=== PATIENT | male | born 1965 | race Caucasian/White ===

== ENCOUNTER 2020-06-24 07:57 | Inpatient (IN) | payer OTHER ==
[~2020-06-24] VITALS: Ht 175.3 cm; Wt 107.1 kg
[~2020-06-24 07:57] MED LIST: AMBIEN 5 MG TABL5 M1 PO; ASPIRIN325 PO; CARDIZEM CD240 MG PO
[2020-06-24 08:02] VITALS: BP 134/84
[2020-06-24] MEDS ORDERED: CARDIZEM CD120 MG PO (08:06)
[2020-06-24 08:30] LABS: ABSOLUTE BASOPHILS 0.1 thou/uL (0.0-0.2); ABSOLUTE EOSINOPHILS 0.1 thou/uL (0.0-0.7); ABSOLUTE LYMPHOCYTES 1.9 thou/uL (0.8-5.3); ABSOLUTE MONOCYTES 0.6 thou/uL (0.0-1.2); ABSOLUTE NEUTROPHILS 3.8 thou/uL (1.6-8.1); BASOPHILS 0.9 %; EOSINOPHILS 1.5 %; HEMOGLOBIN 17.6 gm/dL (14.0-18.0); LYMPHOCYTES 29.8 %; MCH 31.5 pg (26.0-34.0); MCHC 33.3 g/dL (28.0-37.0); MCV 94.7 fL (80.0-100.0); MPV 8.7 fl. (7.2-11.1); NUCLEATED RBCS 0 /100WBC; PLATELET COUNT* 260 thou/uL (150-400); POLYS 58.8 %; WBC 6.5 thou/uL (4.0-11.0)
[2020-06-24 08:37] LABS: CALCIUM 8.5 mg/dL (8.5-10.1)
[2020-06-24 08:48] LABS: ALBUMIN 3.8 g/dL (3.4-5.0); TOTAL BILIRUBIN 0.8 mg/dL (<0.1-1.0); TOTAL PROTEIN 7.7 g/dL (6.4-8.2)
[2020-06-24 09:08] LABS: APTT 26.6 Seconds (25.0-31.3); INR 1.1; PROTIME 11.2 Seconds (9.20-11.50)
[2020-06-24 10:31] VITALS: BP 114/79
[2020-06-24 10:40] VITALS: BP 141/95
--- NOTE | 2020-06-24 11:24 | EKG ---
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1965 Requested By: Tyler Gerardo Order Number: [id number] MD: Quentin Cummings Measurements Intervals [place] Rate: 88 P: RI: QRS: 15 QRSD: 142 T: 1 QT: 378 QTc: 458 Interpretive Statements Atrial fibrillation Right bundle branch block Baseline wander in lead(s) V2,V3,V4 Compared to ECG 03/02/2016 18:19:39 No significant changes Electronically Signed On 06-24-2020 11:24:27 CDT by Quentin Cummings [email or web address] <ELECTRONICALLY SIGNED> By: Quentin Cummings MD, [facility] 06/24/20 1124 5 5 Quentin Cummings MD, [facility] /EPI
[2020-06-24 16:05] VITALS: BP 142/82
[2020-06-24 20:00] VITALS: BP 116/74
[2020-06-25 00:43] VITALS: BP 108/54
[2020-06-25 04:36] VITALS: BP 109/67
[2020-06-25 07:51] VITALS: BP 125/70
[2020-06-25 12:00] VITALS: BP 111/64
--- NOTE | 2020-06-25 13:38 | CON ---
[address] [address] CONSULTATION Name: THERESA ALBERTO Room: [place] [address] ADM Radha Carey#: [id number] Admission: 06/24/20 Attend Phys: Quentin Cummings MD, F Discharge: Date of : 65 Report #: [id number] THIS REPORT FOR: cc: Jose F Turner MD, Matthew W. MD Blick, David R. MD [facility] ~ DATE OF SERVICE: 06/24/2020 CARDIOLOGY CONSULTATION HISTORY OF PRESENT ILLNESS: The patient is a 55-year-old white male who I was asked to see in the hospital today after he had atrial fibrillation. The patient has an extensive and complicated past medical history. He has a history of morbid obesity, previously weighed over 400 pounds, but had gastric sleeve surgery done in the past. He is not very active at this time. He has a long history of paroxysmal atrial fibrillation. He notes he is positive, then cardioverted at least 12 times, initially in 1984 at [facility]. His last cardioversion was here at [facility] in 02/[address] Hodgson. He actually underwent radiofrequency ablation by Dr. Ornelas at [facility] in 2007. He was doing well until about 3 days ago, he noticed an irregular heartbeat, felt somewhat lightheaded. He said he is back in atrial fibrillation. He came to the Emergency Room today and was admitted for further evaluation and treatment. He does have occasional lightheadedness and fatigue. He has some shortness of breath, but denies any chest pain, fever or cough. He has no history of bleeding. PAST MEDICAL HISTORY: He has had previous gastric sleeve surgery, cholecystectomy, foot surgery. No history of hypertension, diabetes, hyperlipidemia. MEDICATIONS: Include diltiazem CD 120 mg a day. He takes Ambien for sleep. ALLERGIES: He has no known drug allergies. FAMILY HISTORY: His father and mother had atrial fibrillation. SOCIAL HISTORY: He is . He and his live in [place]. Quit smoking years ago. No alcohol abuse. Rarely drinks caffeine. No illicit drug use. REVIEW OF SYSTEMS: He has had no history of stroke. He has allergies. No history of asthma, liver disease, kidney disease, cancer, psychiatric illness, [place] [address] CONSULTATION Name: THERESA ALBERTO Room: [address] Radha Carey#: [id number] Admission: 06/24/20 Attend Phys: Quentin Cummings MD, F Discharge: Date of : 65 Report #: [id number] PHYSICAL EXAMINATION: GENERAL: Revealed a large middle-aged male, appeared in no distress. VITAL SIGNS: He had a blood pressure of 120/80, pulse is 80. He was afebrile. HEENT: He was anicteric. Conjunctivae pink. Mucous membranes moist. NECK: Veins nondistended. No carotid bruits. Neck supple. CHEST: Clear to auscultation. CARDIOVASCULAR: Irregular rhythm. No significant murmur. ABDOMEN: Soft, nontender. EXTREMITIES: Had no edema. Dorsalis pedis pulses 1+ bilaterally. SKIN: Cool and dry. RADIOLOGICAL DATA: ECG shows atrial fibrillation, controlled ventricular response rate with a right bundle-branch block. His workup; the patient actually had an echocardiogram back in 2016 here at [facility] that showed ejection fraction of 55%, no significant valvular abnormalities. The patient had a portable chest x-ray this morning in the Emergency Room that showed normal heart size, clear lung hagen. LABORATORY WORK: Sodium 145, creatinine 1.0, glucose 90. Liver function studies were normal. Troponin 0.06. Previous cholesterol in 2016 was 220, triglyceride 132, HDL 55, LDL of 139. His white blood cell count is 6.5, hemoglobin 17.6. IMPRESSION AND RECOMMENDATIONS: 1. Atrial fibrillation. Occurred 3 days ago. The patient has a SUZANNE score of 0. Therefore, I would not recommend anticoagulation. The patient has been cardioverted 12 times in the past including radiofrequency ablation. At this time, I would aim for rate control with diltiazem. I would consider an aspirin a day. 2. History of morbid obesity. 3. Allergies. 4. Hyperlipidemia. If LDL remains greater than 130, I would consider a statin drug. <ELECTRONICALLY SIGNED> By: Quentin Cummings MD, [facility] 06/25/20 1338 1315 [id number] Cummings MD, FACC /nt
[2020-06-25 16:00] VITALS: BP 116/69
[2020-06-26] VITALS (20 sets, daily range): BP systolic 88–113; BP diastolic 57–89
--- NOTE | 2020-06-26 11:16 | EKG ---
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
--- NOTE | 2020-06-26 11:23 | TEE ---
[place] [address] TRANSESOPHAGEAL ECHOCARDIOGRAM Name: THERESA ALBERTO Room: [address] IN Aung#: [id number] Admission: 06/25/20 Attend Phys: Quentin Cummings MD Discharge: Date of : 65 Date of Service: 06/26/20 1123 Report #: [id number] THIS REPORT FOR: cc: Jose F Turner MD, Matthew W. MD Blick, David R. MD [facility] ~ APPROVED REPORT Study performed: 06/26/2020 09:31:35 EXAM: Transesophageal Echocardiogram Patient Location: In-Patient Room #: 227 Status: routine BSA: 2.31 HR: 78 bpm BP: 109/81 mmHg Rhythm: Atrial Fibrillation Indications Atrial Fibrillation Echo Enhancing Agent Indication: Rule out Shunt Agent(s) / Amount(s) Used: Agitated Saline 20 cc Comments: 2 bubble studies Procedure After obtaining informed consent, patient underwent transesophageal echo in the [employer]. Type of Sedation : Conscious Sedation Sedation was administered by Kayleen Lopez RN. Sedation start time: 1027 Case end Time: 1048 Sedation was achieved intravenously with: Versed (4) Fentanyl (75) Transesophageal probe was inserted and advanced into esophagus without difficulty by Quentin Cummings MD, [facility]. Echo enhancement indication: R/O Septal defect. Echo enhancement agent administered: Agitated Saline The MYRON was performed without complications. Synchronized Cardioversion acheived with 300 Joules after 1 attempt(s). Rhythm following Synchronized Cardioversion: Normal Sinus Rhythm Throughout the procedure, the blood pressure, pulse oximetry, cardiac [address] [address] TRANSESOPHAGEAL ECHOCARDIOGRAM Name: THERESA ALBERTO Room: [address] IN [facility]#: [id number] Admission: 06/25/20 Attend Phys: Quentin Cummings MD Discharge: Date of : 65 Date of Service: 06/26/20 1123 Report #: [id number] rhythm, and rate were monitored. The patient tolerated the procedure without adverse effects. Recovery from conscious sedation was uneventful and vital signs were stable. Left Ventricle The left ventricle is normal size. There is normal LV segmental wall motion. Mild concentric left ventricular hypertrophy. The left ventricular systolic function is normal. The left ventricular ejection fraction is within the normal range. LVEF is 60-65%. Right Ventricle The right ventricle is normal size. The right ventricular systolic function is normal. Atria Left atrium is mildly dilated. No thrombus is visualized in the left atrium or appendage. The interatrial septum is intact with no evidence for an atrial septal defect. The right atrium size is normal. Aortic Valve The aortic valve is normal in structure. Trace aortic regurgitation. There is no aortic valvular stenosis. Mitral Valve The mitral valve is normal in structure. Trace mitral regurgitation. No evidence of mitral valve stenosis. Tricuspid Valve The tricuspid valve is normal in structure. Mild tricuspid regurgitation. Pulmonic Valve The pulmonary valve is normal in structure. There is no pulmonic valvular regurgitation. Great Vessels The aortic root is normal in size. Pericardium There is no pericardial effusion. <Conclusion> Mild concentric left ventricular hypertrophy. LVEF is 60-65%. [place] [address] TRANSESOPHAGEAL ECHOCARDIOGRAM Name: REMYTHERESA L Room: [address] IN ..#: [id number] Admission: 06/25/20 Attend Phys: Quentin Cummings MD Discharge: Date of : 65 Date of Service: 06/26/20 112 Report #: [id number] Left atrium is mildly dilated. No thrombus is visualized in the left atrium or appendage. The interatrial septum is intact with no evidence for an atrial septal defect. successful cardioversion of atrial fibrillation to normal sinus rhythm <ELECTRONICALLY SIGNED> By: Quentin Cummings MD, [facility] 06/26/20 1123 22 22 Quentin Cummings MD, FACC /INF
[2020-06-27] VITALS: BP 100/59
[2020-06-27 04:00] VITALS: BP 109/67
[2020-06-27 07:40] VITALS: BP 111/74
[2020-06-27] MEDS ORDERED: ELIQUIS5 MG PO (08:40)
[2020-06-27] MEDS ORDERED: SORINE 80 MG TA80 M1 PO (08:41)
[2020-06-27 09:29] VITALS: BP 111/74
[2020-06-27 09:49] VITALS: BP 111/74
--- NOTE | 2020-06-27 10:30 | EKG ---
[place] [address] ELECTROCARDIOGRAM REPORT Name: THERESA ALBERTO Room: [place] [address] DIS IN [facility].#: [id number] Admission: 06/25/20 Attend Phys: Quentin Cummings MD Discharge: 06/27/20 Date of : 65 Date of Service: 06/27/20 0803 Report #: [id number] THIS REPORT FOR: //name// [facility] Test Date: 2020-06-27 Test Time: 08:03:16 Pat Name: THERESA ALBERTO Department: Room: [place] [address] Gender: M Rn Liaison: : 1965 Requested By: Quentin Cummings Order Number: [id number] Serena MD: Quentin Cummings Measurements Intervals [place] Rate: 58 P: 58 UT: 185 QRS: -1 QRSD: 138 T: 1 QT: 420 QTc: 413 Interpretive Statements Sinus rhythm Probable left atrial enlargement Right bundle branch block Compared to ECG 06/26/2020 08:44:47 Atrial fibrillation no longer present Electronically Signed On 06-27-2020 10:30:45 CDT by Quentin Cummings [email or web address] <ELECTRONICALLY SIGNED> By: Quentin Cummings MD, [facility] 06/27/20 1030 2 08 Quentin Cummings MD, [facility] /EPI
--- NOTE | 2020-06-27 13:41 | D ---
[address] [address] DISCHARGE SUMMARY Name: THERESA ALBERTO Room: [address] IN [place].Aung.#: [id number] Admission: 06/25/20 Attend Phys: Quentin Cummings MD, F Discharge: 06/27/20 Date of : 65 Report #: [id number] THIS REPORT FOR: cc: Jose F Turner MD, Matthew W. MD Blick,Quentin Reyes MD [facility] ~ DATE OF SERVICE: 06/27/2020 DISCHARGE DIAGNOSES: 1. Atrial fibrillation. 2. Hyperlipidemia. CONSULTANTS: None. PROCEDURES: 1. Transesophageal echocardiogram. 2. Direct current cardioversion of atrial fibrillation. HISTORY OF PRESENT ILLNESS: The patient is a 55-year-old white male who I was asked to see after he presented to the Emergency Room with palpitations. The patient has a long history of paroxysmal atrial fibrillation. According to his memory, he has been cardioverted at least 12 times including in 1984 at [facility]. His last cardioversion was here at [place] [address] Hodgson. He actually underwent a radiofrequency ablation by Dr. Gómez at [facility] in 2007. He has only been anticoagulated for a brief period of time in the past with warfarin. He was doing well until 3 days prior to admission, he notes irregular heartbeat, felt somewhat lightheaded and short of breath. He came to the Emergency Room on the day of admission, was found to be in atrial fibrillation. He was admitted for further evaluation and treatment. Denies any chest pain, syncope, bleeding. PAST MEDICAL HISTORY: He has a history of morbid obesity, weighing over 400 pounds in the past. He has had gastric sleeve surgery. He has had cholecystectomy, foot surgery. No history of hypertension, diabetes, hyperlipidemia. CURRENT MEDICATIONS: Include diltiazem, Ambien, aspirin. ALLERGIES: He has no known drug allergies. PHYSICAL EXAMINATION: VITAL SIGNS: On admission, his blood pressure 120/80, his pulse is 90 and irregular. He is afebrile. CHEST: Clear to auscultation. CARDIAC: [place] [address] DISCHARGE SUMMARY Name: THERESA ALBERTO [place] Room: [address]#: [id number] Admission: 06/25/20 Attend Phys: Quentin Cummings MD, F Discharge: 06/27/20 Date of : 65 Report #: [id number] ABDOMEN: Soft. EXTREMITIES: Had no edema. DIAGNOSTIC DATA: ECG showed atrial fibrillation, controlled ventricular response rate. Portable chest x-ray, normal heart size, clear lung hagen. LABORATORY DATA: Creatinine 1.0. Liver function studies were normal. Troponin 0.06. Hemoglobin 17.6. HOSPITAL COURSE: The patient was admitted to a monitored bed. Rate appears controlled with diltiazem. I discussed possible rate control versus rhythm control. The patient requested rhythm control since he does not tolerate atrial fibrillation very well. He was therefore started on sotalol 80 mg twice a day and Eliquis 5 mg twice a day. On the next hospital day, he underwent a MYRON. He tolerated the procedure well. Results showed ejection fraction 60%, left ventricular hypertrophy, left atrial enlargement, no thrombus, no shunt. He was then cardioverted with 300 joules to sinus rhythm. He had no further atrial fibrillation, lightheaded and shortness of breath. He had no bleeding taking the Eliquis. Prior to discharge, the patient's family had no further complaints. At time of discharge, he had a blood pressure of 110/70, his pulse is 60. He is afebrile. He was seen by cardiac rehabilitation. Additional lab work included cholesterol 220, triglyceride 132, HDL 55, LDL 139, TSH is 1.6. Followup ECG after starting sotalol showed a sinus rhythm with no QT prolongation. He was discharged on the following medications, sotalol 80 mg every 12 hours, Eliquis 5 mg every 12 hours. He was taken off diltiazem and aspirin. He was to continue Eliquis for at least 1 month following cardioversion and then switch back to an aspirin 325 mg a day since he has a SUZANNE score of 0. He was discharged to follow up with me in the Cardiology Clinic on 08/06. He was to contact my office if he had any recurrent palpitations, lightheadedness or bleeding. He was discharged to follow up with Dr. Turner for routine medical care. He is felt to have a good prognosis from cardiac standpoint. At this time, he can resume normal activities. I did recommend exercise and low fat diet for his hyperlipidemia. If he has recurrent atrial fibrillation, I would increase the sotalol to 160 mg twice a day. The patient may be a candidate for repeat radiofrequency ablation. However, at this time, he appears to have no insurance to cover the procedure. <ELECTRONICALLY SIGNED> By: Quentin Cummings MD, [facility] 06/27/20 1341 0854 0945Dajered Cummings MD, FACC /nt
== END 2020-06-27 09:46 | disposition home or self-care (01) | DRG 310 ==
LOC: M.ERS 07:57 → M.TBA-ER 08:37 → M.2W 10:41
PROVIDERS: Emergency Medicine Emergency Medical Services; ADMIT Internal Medicine Cardiovascular Disease; ATTEND Internal Medicine Cardiovascular Disease
PROC: B24BZZ4 Ultrasonography of Heart with Aorta, Transesophageal (ICD-10-PCS; principal; 2020-06-26)
PROC: 5A2204Z Restoration of Cardiac Rhythm, Single (ICD-10-PCS; principal; 2020-06-26)
DX: I48.0 Paroxysmal atrial fibrillation (principal); Z86.16 Personal history of COVID-19; Z20.822 Contact with and (suspected) exposure to COVID-19; E66.01 Morbid (severe) obesity due to excess calories; E78.5 Hyperlipidemia, unspecified; Z79.82 Long term (current) use of aspirin; Z79.899 Other long term (current) drug therapy; Z68.34 Body mass index [BMI] 34.0-34.9, adult; Z90.49 Acquired absence of other specified parts of digestive tract; Z82.49 Family history of ischemic heart disease and other diseases of the circulatory system